=== PATIENT | female | born 1950 | race Caucasian/White ===

== ENCOUNTER → 2018-01-29 | Outpatient (CLI) | payer BC ==
[~2018-01-29] VITALS: Ht 165.1 cm; Wt 93.9 kg
[~2018-01-29] MED LIST: ASPIR 8181 M1 PO; DULERA 200 MCG/13 GM IH; EVOXAC30 MG PO; FLEXERIL10 MG PO; FLONASE16 G1 BOTH NARES; INCRUSE ELLI62.5 MCG IH; LORTAB 5-325 M1 EACH PO; METOPROLOL TART25 MG PO; NEXIUM20 MG PO; NEXIUM40 MG PO; NORVASC5 MG PO; PROVENTIL,2.5 MG/3 M IH; TYLENOL EXTRA500 MG PO; VENTOLIN HFA18 GM IH; ZANTAC150 MG PO
== END | disposition home or self-care (01) ==
LOC: AMB 11:00
PROC: 0DJ08ZZ Inspection of Upper Intestinal Tract, Via Natural or Artificial Opening Endoscopic (ICD-10-PCS; principal; 2018-01-29)
DX: K44.9 Diaphragmatic hernia without obstruction or gangrene (principal); R12 Heartburn; G47.30 Sleep apnea, unspecified; M32.9 Systemic lupus erythematosus, unspecified; I87.2 Venous insufficiency (chronic) (peripheral); K21.9 Gastro-esophageal reflux disease without esophagitis; I10 Essential (primary) hypertension; Z82.49 Family history of ischemic heart disease and other diseases of the circulatory system; Z79.82 Long term (current) use of aspirin; J44.9 Chronic obstructive pulmonary disease, unspecified

== ENCOUNTER → 2018-04-20 | Outpatient (CLI) | payer BC | END | disposition home or self-care (01) | LOC: NUC 08:07 | DX: K21.9 Gastro-esophageal reflux disease without esophagitis (principal) | CPT/HCPCS: 78264; A9541 ==